=== PATIENT | male | born 1960 | race Caucasian/White ===

== ENCOUNTER → 2020-04-25 | Outpatient (CLI) | payer OTHER ==
[~2020-04-25] MED LIST: ALLOPURINOL 30300 M3 PO; AMBIEN 10 MG TA10 MG PO; BUPROPION XL150 MG PO; DILTIAZEM 24HR300 M1 PO; IBUPROFEN 400400 M1 PO; LEVOTHROID100 MC1 PO; MIRAPEX0.25 MG PO; NAPROSYN250 MG PO; NEURONTIN 300M300 M2 PO; PERCOCET 5-3251 EACH PO; PROZAC40 MG PO; ROBAXIN 750 MG750 M1 PO; VASOTEC20 MG PO; VITAMIN D-32000 UNIT PO; ZOCOR40 MG PO
== END ==
LOC: SJCVC 09:57
PROVIDERS: ATTEND Internal Medicine
DX: Z41.9 Encounter for procedure for purposes other than remedying health state, unspecified (principal); E03.9 Hypothyroidism, unspecified; I12.9 Hypertensive chronic kidney disease with stage 1 through stage 4 chronic kidney disease, or unspecified chronic kidney disease; E11.22 Type 2 diabetes mellitus with diabetic chronic kidney disease; N18.30 Chronic kidney disease, stage 3 unspecified; E78.5 Hyperlipidemia, unspecified; E11.40 Type 2 diabetes mellitus with diabetic neuropathy, unspecified; E66.01 Morbid (severe) obesity due to excess calories; Z82.49 Family history of ischemic heart disease and other diseases of the circulatory system; Z87.891 Personal history of nicotine dependence

== ENCOUNTER → 2020-05-08 | Outpatient (CLI) | payer OTHER | LOC: SJCVCIMAG 07:33 | PROVIDERS: ATTEND Internal Medicine | DX: Z01.810 Encounter for preprocedural cardiovascular examination (principal); E78.00 Pure hypercholesterolemia, unspecified; E11.22 Type 2 diabetes mellitus with diabetic chronic kidney disease; I13.10 Hypertensive heart and chronic kidney disease without heart failure, with stage 1 through stage 4 chronic kidney disease, or unspecified chronic kidney disease; N18.30 Chronic kidney disease, stage 3 unspecified; E66.01 Morbid (severe) obesity due to excess calories; E55.9 Vitamin D deficiency, unspecified; F32.9 Major depressive disorder, single episode, unspecified; Z88.0 Allergy status to penicillin ==

== ENCOUNTER → 2020-05-23 | Outpatient (CLI) | payer OTHER | LOC: SJCVCIMAG 05-16 07:32 | PROVIDERS: ATTEND Internal Medicine | DX: I49.3 Ventricular premature depolarization (principal); I12.9 Hypertensive chronic kidney disease with stage 1 through stage 4 chronic kidney disease, or unspecified chronic kidney disease; N18.9 Chronic kidney disease, unspecified; E78.5 Hyperlipidemia, unspecified; E03.9 Hypothyroidism, unspecified; E66.01 Morbid (severe) obesity due to excess calories; G47.30 Sleep apnea, unspecified; M19.90 Unspecified osteoarthritis, unspecified site; Z79.899 Other long term (current) drug therapy; Z87.891 Personal history of nicotine dependence ==

== ENCOUNTER 2020-07-11 10:52 | Inpatient (IN) | payer OTHER ==
[~2020-07-11] VITALS: Ht 177.8 cm; Wt 224.1 kg
[2020-07-11 10:54] VITALS: BP 137/66
[2020-07-11 11:48] LABS: ABSOLUTE NEUTROPHILS 5.9 thou/uL (1.4-8.2); EOSINOPHILS 3.8 % (0.0-3.0); HEMATOCRIT 45.4 % (42.0-52.0); HEMOGLOBIN 14.3 gm/dL (14.0-18.0); LYMPHOCYTES 8.9 % (24.0-44.0); MCH 29.3 pg (26.0-34.0); MCHC 31.5 g/dL (28.0-37.0); MCV 92.8 fL (80.0-100.0); MONOCYTES 5.9 % (1.0-8.0); PLATELET COUNT 219 thou/uL (150-400); POLYS 80.4 % (36.0-66.0); RBC 4.89 mil/uL (4.50-6.00); RDW 19.5 % (10.5-14.5); WBC 7.3 thou/uL (4.0-11.0)
[2020-07-11 11:57] LABS: ANION GAP 6 mmol/L (7-16); BUN 33 mg/dL (7-18); CALCIUM 8.8 mg/dL (8.5-10.1); CHLORIDE 100 mmol/L (98-107); CO2 30 mmol/L (21-32); CREATININE 2.5 mg/dL (0.7-1.3); GLUCOSE 135 mg/dL (74-106); POTASSIUM 4.5 mmol/L (3.5-5.1); SODIUM 136 mmol/L (136-145)
[2020-07-11 12:07] LABS: ALBUMIN 3.4 g/dL (3.4-5.0); SGOT 21 U/L (15-37); SGPT 28 U/L (30-65); TOTAL BILIRUBIN 0.6 mg/dL (0.2-1.0); TOTAL PROTEIN 8.4 g/dL (6.4-8.2); TROPONIN-I <0.06 ng/mL (<0.06)
[2020-07-11 13:08] LABS: BE(vivo) 0.1 mmol/L (-2 to +3); HCO3 30.2 mmol/L (22.0-26.0); sO2 92.7 % (92.0-98.0)
[2020-07-11 13:09] LABS: PCO2 75.2 mmHg (35.0-45.0); pH 7.221 (7.360-7.450)
[2020-07-11 13:39] VITALS: BP 130/76
[2020-07-11 15:00] VITALS: BP 124/66
--- NOTE | 2020-07-11 18:16 | NUR ---
PT ADMITTED AT 350 AT 1500, PT ALERT AND ORIENTED X4, DENIES CHEST PAIN, NAUSEA AND VOMITTING. 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 PT ON 3L OF OXYGEN, SOB WITH EXERTION. PT STATES WEARS CPAP AT NIGHT. PT WEIGHS 495LB, HOUSE SUP MADE AWARE ABOUT GETTING PT A BARIATRIC BED. PT USES HIS WALKER TO THE BATHRROM. ADMISSION AND ASSESSMENT COMPLTED. LYMPHEDEMA BILATERAL LOWER EXTREMITY, OTHERWISE SKIN INTACT. FALL PRECAUTION IN PLACE
[2020-07-11 19:12] VITALS: BP 135/76
[2020-07-12 04:20] VITALS: BP 118/65
--- NOTE | 2020-07-12 05:51 | NUR ---
PT MAKING PROGRESS TOWARDS GOALS. ABG DONE IN ER NOTED, PT WEIGHT NOTED. PT ON O2 AT 3L PER NC INITIALLY. RT PROVIDED BIPAP AND PT USED THIS FOR MUCH OF THE NIGHT. OFF BIPAP TO USE TOILET. PROVIDED LARGE BSC BUT PT STATED IT WAS TOO SMALL AND NEEDED THE TOILET INSTEAD. NOTED O2 SAT 93-95% WHEN ON BIPAP. SEE CHARTING.
--- NOTE | 2020-07-12 07:11 | EKG ---
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 07/12/20 0710 [id number] Natan Mccord MD, FACC /EPI
[2020-07-12 07:33] VITALS: BP 125/70
[2020-07-12 09:17] LABS: HEMATOCRIT 46.2 % (42.0-52.0); HEMOGLOBIN 14.3 gm/dL (14.0-18.0); MCHC 30.9 g/dL (28.0-37.0); MCV 93.8 fL (80.0-100.0); RBC 4.93 mil/uL (4.50-6.00); RDW 19.5 % (10.5-14.5); WBC 6.7 thou/uL (4.0-11.0)
[2020-07-12 09:27] LABS: CALCIUM 8.7 mg/dL (8.5-10.1); CREATININE 2.1 mg/dL (0.7-1.3); MAGNESIUM 2.6 mg/dL (1.8-2.4); POTASSIUM 5.3 mmol/L (3.5-5.1)
--- NOTE | 2020-07-12 15:01 | NUR ---
INITIAL ASSESSMENT: Received consult. MIGUE reviewed chart and spoke with nursing and attending physician. Pt was admitted from home due to acute hypoxic respiratory failure. Pt was placed in Enhanced Isolation to r/o [facility]. Pt's test was negative. Pt is on 3L of O2 and IV steroids. Pulmonary consulted. MIGUE spoke with pt via phone. Introduced role of SW. Pt is alert/orientated x 4. Pt reports he lives at home with his family. Prior to admission, pt was independent with ADLs. Pt does have walker at home. Pt has a cpap through [facility]. Pt does not have home O2. No hx of HH services or post-acute placement. Pt's PCP is Dr. Urbina. There are 2 steps to enter the home. No steps inside. Discharge home is anticipated over the weekend. SW discussed possible need for home O2. Pt verbalized understanding and is agreeable with using [facility] for home O2. Pt declines need for HH at this time. SW faxed clinical info to [facility] and notified [facility] liaison. Pt will need a rest/exercise oximetry ordered to determine pt's home O2 needs. Results and script will need to be faxed to [facility] when available. Pt will have transportation home. MIGUE is following and available to assist should needs arise. [facility]--
[2020-07-12 15:29] VITALS: BP 137/66
[2020-07-12 16:15] LABS: HCO3 31.6 mmol/L (22.0-26.0); PCO2 73.5 mmHg (35.0-45.0); PO2 61.6 mmHg (80.0-100.0); pH 7.251 (7.360-7.450); sO2 86.8 % (92.0-98.0)
--- NOTE | 2020-07-12 18:33 | NUR ---
PATIENT STATES HE FEELS ASYMPTOMATIC THROUGH OUT THE DAY. IS REALLY ANXIOUS TO DISCHARGE HOME. NEW CONSULT FOR WOUND CARE DOCTOR TO ASSESS LOWER EXTREMITIES. CRITICAL ABG RESULTS CALLED TO DR. HALE. NO NEW ORDERS. GOAL TO TITRATE OFF OXYGEN. PLAN TO DISCHARGE HOME TOMORROW.
[2020-07-12 19:41] VITALS: BP 128/77
[2020-07-13 04:28] VITALS: BP 133/65
[2020-07-13 04:33] LABS: HEMATOCRIT 47.9 % (42.0-52.0); HEMOGLOBIN 14.8 gm/dL (14.0-18.0); MCH 29.2 pg (26.0-34.0); MCHC 30.8 g/dL (28.0-37.0); MCV 94.6 fL (80.0-100.0); RBC 5.06 mil/uL (4.50-6.00); RDW 19.6 % (10.5-14.5); WBC 8.9 thou/uL (4.0-11.0)
[2020-07-13 04:40] LABS: CALCIUM 9.1 mg/dL (8.5-10.1); CREATININE 2.5 mg/dL (0.7-1.3); MAGNESIUM 2.9 mg/dL (1.8-2.4); POTASSIUM 4.8 mmol/L (3.5-5.1)
--- NOTE | 2020-07-13 19:50 | NUR ---
PATIENT HAD REALLY WANTED TO GO HOME TODAY. BUT NEPHROLOGY HAS BEEN CONSULTED AND WILL SEE HIM IN THE AM. HE IS ALERT. AMBULATES TO BATHROOM. SPOKE WITH DAUGHTER WHO STATES THAT LAST TIME HIS CREATININE WAS CHECKED IN [facility] IT WAS 1.2. WILL CONT WITH PLAN OF CARE.
[2020-07-13 20:26] VITALS: BP 121/68
--- NOTE | 2020-07-13 21:12 | NUR ---
PT RESTING IN BED, VERY TALKATIVE AND NOT SOA. O2 PER NC. CPAP AT HS. PT IN BIG BOY BED WITH CHRISTINE MATTRESS. LUNGS WHEEZES AND DIMINISHED, OBESE, BLE EDEMA AND DRY SCALY LEGS. PT AMBULATED WITH WALKER TO . PT DISCUSSED HOW HIS DAUGHTER IS A DR. DOING A ROTATION AT [facility], BUT THAT HER IS JOHNSON AND USELESS. PT PROVIDED SNACK.
--- NOTE | 2020-07-13 23:58 | NUR ---
PTS CPAP MASK FREQUENTLY LEAKING, RESPIRATORY NOTIFIED. TRYING DIFFERENT SIZE CPAP MASK.
[2020-07-14 03:40] VITALS: BP 132/83
--- NOTE | 2020-07-14 03:40 | NUR ---
PT OBSERVED MORE THAN ONCE AND BY MORE THAN ONE NURSE DISCONNECTING HIS FINGER PULSE OX FROM THE MONITOR CORD.
[2020-07-14 04:10] LABS: CALCIUM 8.8 mg/dL (8.5-10.1); CREATININE 2.2 mg/dL (0.7-1.3); MAGNESIUM 2.9 mg/dL (1.8-2.4)
[2020-07-14 04:15] LABS: POTASSIUM 5.1 mmol/L (3.5-5.1)
[2020-07-14 05:04] LABS: HEMATOCRIT 45.2 % (42.0-52.0); HEMOGLOBIN 13.9 gm/dL (14.0-18.0); MCH 28.7 pg (26.0-34.0); MCHC 30.8 g/dL (28.0-37.0); MCV 93.2 fL (80.0-100.0); RBC 4.85 mil/uL (4.50-6.00); RDW 20.2 % (10.5-14.5); WBC 7.5 thou/uL (4.0-11.0)
[2020-07-14 07:07] VITALS: BP 139/81
--- NOTE | 2020-07-14 12:07 | HC ---
[facility] [place] [address] CONSULTATION Name: RAYNE HAYWOOD Room #: 364-P ADM IN M.R.#: [id number] Admission: 07/11/20 Attend Phys: Dave Weiss MD Discharge: Date of : 56 Report #: [id number] THIS REPORT FOR: cc: Sidney Urbina,Leroy Franks MD ~ DATE OF SERVICE: 07/13/2020 WOUND CARE CONSULTATION NOTE LOCATION: [facility]. REASON FOR CONSULTATION: Lymphedema with inflammation of right leg. HISTORY OF PRESENT ILLNESS: The patient is a 59-year-old gentleman with super morbid obesity, alveolar hypoventilation and sleep apnea who was admitted due to shortness of breath. The patient has been scheduled for bariatric surgery. The patient has chronic lymphedema, worse on the right leg than the left. Wound Care is consulted due to appearance of his right leg. PAST MEDICAL HISTORY: Super morbid obesity with alveolar hypoventilation, acute hypoxemic respiratory failure, chronic renal insufficiency, sleep apnea, hypertension, hypercholesterolemia, lower extremity neuropathy, lymphedema. ALLERGIES: No known allergies. MEDICATIONS: Include bupropion, Vasotec, Prozac, Levothroid, Neurontin, Zocor, Mirapex, Robaxin, Percocet, allopurinol, diltiazem, and Ambien. PHYSICAL EXAMINATION: GENERAL: Shows a super morbidly obese gentleman who has no shortness of breath. HEENT: Mucous membranes are moist. NECK: Supple. ABDOMEN: Obese. EXTREMITIES: Examination of the lower extremities shows chronic lymphedema with thickening of the skin and lipedema. Lower right leg anteriorly has chronic discoloration secondary to inflammation with some accumulated crusted drainage. Leg does not appear cellulitic. IMPRESSION: 1. Super morbid obesity with alveolar hypoventilation. 2. Peripheral neuropathy. 3. Chronic lymphedema with inflammation. [facility] [address] [place] [address] CONSULTATION Name: RAYNE HAYWOOD Room #: 364-P [facility] IN M.R.#: [id number] Admission: 07/11/20 Attend Phys: Dave Weiss MD Discharge: Date of : 56 Report #: [id number] PLAN: Ammonium lactate apply to legs. Kerlix and Gerry wrap. On outpatient basis, the patient can be referred to healing at [facility], . <ELECTRONICALLY SIGNED> By: Leroy Ornelas MD 07/14/20 1207 [id number] [id number] Leroy Ornelas MD /nt
[2020-07-14 15:28] VITALS: BP 134/71
--- NOTE | 2020-07-14 18:20 | NUR ---
PATIENT HAS BEEN ABLE TO AMBULATE TO RESTROOM WITH STAND BY ASSIST. CONT 2L NC. DENIES PAIN. NEPRHOLOGY SAW PATIENT TODAY. HE IS ALERT ORIENTED X4. WILL CONT WITH PLAN OF CARE.
[2020-07-14 20:30] VITALS: BP 131/78
--- NOTE | 2020-07-14 23:22 | NUR ---
ASSUMED PT CARE AT 1900. VSS. PT A&0X4. GETS UP WITH THE WLKER TO USE THE BATHROOM. PT ON 4L NC. BUT USES CPAP AT NOC. WHEN RT ATTEMPTED TO PLACE PT ON OWN HOME CPAP. PT WAS NOT SATURATING WELL. SATS WAS READING IN THE 80s. RT PLACED PT ON OUR OWN MINI BIPAP MACHINE BUT THERE WAS A LEAK AND PT STILL WASNT SATURATING WELL. DR HALE NOTIFIED OF PT'S STATUS AT 2314, PT THEN PLACED ON THE HOSPITAL STANDARD BIPAP MACHINE. SETTINGS; 21/10, RATE OF 18 @ 40% PT SATS UP IN HIGH 90s NOW. PT IS STABLE, WILL CONTINUE TO MONITOR PER POC.
[2020-07-15 03:39] LABS: HEMATOCRIT 43.5 % (42.0-52.0); HEMOGLOBIN 13.7 gm/dL (14.0-18.0); MCH 28.9 pg (26.0-34.0); MCHC 31.5 g/dL (28.0-37.0); MCV 91.8 fL (80.0-100.0); RBC 4.74 mil/uL (4.50-6.00); RDW 19.3 % (10.5-14.5); WBC 7.1 thou/uL (4.0-11.0)
[2020-07-15 03:50] LABS: CALCIUM 8.8 mg/dL (8.5-10.1); MAGNESIUM 2.7 mg/dL (1.8-2.4); POTASSIUM 5.4 mmol/L (3.5-5.1)
[2020-07-15 05:25] VITALS: BP 147/72
[2020-07-15] MEDS ORDERED: TORSEMIDE10 MG PO (09:04)
--- NOTE | 2020-07-15 11:32 | NUR ---
DISCHARGE NOTE: SW reviewed chart and spoke with nursing and attending physician. Pt is medically stable for discharge home today. Rest/exercise oximetry completed by RT. Pt does not qualify for home O2. O2 sats remained above 90% on room air and with activity. SW met with pt at bedside to discuss discharge plan. Pt is agreeable with plan. Pt's family will provide transportation home. MIGUE updated [facility] liaison, as pt does not need home O2. No SW needs identified at this time, but is available to assist should needs arise.
[2020-07-15 13:01] VITALS: BP 147/72
--- NOTE | 2020-07-16 09:24 | NUR ---
Note Given: Y Facility List Provided:Y Facility Junior: No facility chosen, pt d/c to home Diane Benton NP discussed BPCI with pt 07/15/2020
== END 2020-07-15 14:10 | disposition home or self-care (01) | DRG 291 ==
LOC: ER 10:52 → 3W 14:00 → EROBS 14:00 → 3W 15:13
PROVIDERS: Emergency Medicine; Internal Medicine Pulmonary Disease; ADMIT Internal Medicine; ATTEND Internal Medicine
PROC: 5A09357 Assistance with Respiratory Ventilation, Less than 24 Consecutive Hours, Continuous Positive Airway Pressure (ICD-10-PCS; principal; 2020-07-11)
PROC: 5A09357 Assistance with Respiratory Ventilation, Less than 24 Consecutive Hours, Continuous Positive Airway Pressure (ICD-10-PCS; 2020-07-12)
PROC: 5A09357 Assistance with Respiratory Ventilation, Less than 24 Consecutive Hours, Continuous Positive Airway Pressure (ICD-10-PCS; 2020-07-13)
PROC: 5A09357 Assistance with Respiratory Ventilation, Less than 24 Consecutive Hours, Continuous Positive Airway Pressure (ICD-10-PCS; 2020-07-14)
PROC: 5A09357 Assistance with Respiratory Ventilation, Less than 24 Consecutive Hours, Continuous Positive Airway Pressure (ICD-10-PCS; 2020-07-15)
DX: I13.0 Hypertensive heart and chronic kidney disease with heart failure and stage 1 through stage 4 chronic kidney disease, or unspecified chronic kidney disease (principal); I50.33 Acute on chronic diastolic (congestive) heart failure; J96.01 Acute respiratory failure with hypoxia; J96.02 Acute respiratory failure with hypercapnia; N17.9 Acute kidney failure, unspecified; E66.2 Morbid (severe) obesity with alveolar hypoventilation; Z68.45 Body mass index [BMI] 70 or greater, adult; N18.9 Chronic kidney disease, unspecified; E78.00 Pure hypercholesterolemia, unspecified; M10.9 Gout, unspecified; F32.9 Major depressive disorder, single episode, unspecified; G62.9 Polyneuropathy, unspecified; E03.9 Hypothyroidism, unspecified; R73.9 Hyperglycemia, unspecified; D72.10 Eosinophilia, unspecified; I87.8 Other specified disorders of veins; Z20.822 Contact with and (suspected) exposure to COVID-19; Z87.891 Personal history of nicotine dependence; Z79.899 Other long term (current) drug therapy; Z99.81 Dependence on supplemental oxygen; Z23 Encounter for immunization
CPT/HCPCS: 10779; 10879

== ENCOUNTER → 2020-07-31 | Outpatient (CLI) | payer OTHER ==
[~2020-07-31] MED LIST changes: +TORSEMIDE10 MG PO
== END ==
LOC: SJCVC 09:48
PROVIDERS: ATTEND Internal Medicine
DX: I12.9 Hypertensive chronic kidney disease with stage 1 through stage 4 chronic kidney disease, or unspecified chronic kidney disease (principal); N18.30 Chronic kidney disease, stage 3 unspecified; E78.5 Hyperlipidemia, unspecified; I10 Essential (primary) hypertension; G60.9 Hereditary and idiopathic neuropathy, unspecified; E66.01 Morbid (severe) obesity due to excess calories; E55.9 Vitamin D deficiency, unspecified; E78.00 Pure hypercholesterolemia, unspecified; Z68.45 Body mass index [BMI] 70 or greater, adult; Z87.891 Personal history of nicotine dependence; Z79.899 Other long term (current) drug therapy; Z88.2 Allergy status to sulfonamides; Z88.1 Allergy status to other antibiotic agents

== ENCOUNTER → 2020-10-02 | Outpatient (CLI) | payer OTHER | LOC: SJCVC 10:09 | PROVIDERS: ATTEND Internal Medicine | DX: I13.0 Hypertensive heart and chronic kidney disease with heart failure and stage 1 through stage 4 chronic kidney disease, or unspecified chronic kidney disease (principal); I50.9 Heart failure, unspecified; N18.9 Chronic kidney disease, unspecified; E78.00 Pure hypercholesterolemia, unspecified; E66.9 Obesity, unspecified; E78.5 Hyperlipidemia, unspecified; Z68.45 Body mass index [BMI] 70 or greater, adult; Z88.2 Allergy status to sulfonamides; Z79.899 Other long term (current) drug therapy; Z87.891 Personal history of nicotine dependence; Z82.49 Family history of ischemic heart disease and other diseases of the circulatory system ==

== ENCOUNTER → 2020-11-21 | Outpatient (CLI) | payer OTHER | LOC: SJCVC 09:03 | PROVIDERS: ATTEND Internal Medicine | DX: E78.00 Pure hypercholesterolemia, unspecified (principal); I12.9 Hypertensive chronic kidney disease with stage 1 through stage 4 chronic kidney disease, or unspecified chronic kidney disease; N18.30 Chronic kidney disease, stage 3 unspecified; E78.5 Hyperlipidemia, unspecified; G60.9 Hereditary and idiopathic neuropathy, unspecified; E66.9 Obesity, unspecified; Z82.49 Family history of ischemic heart disease and other diseases of the circulatory system; Z87.891 Personal history of nicotine dependence; Z88.2 Allergy status to sulfonamides; Z79.899 Other long term (current) drug therapy ==

== ENCOUNTER → 2020-12-19 | Outpatient (CLI) | payer OTHER | LOC: ULTRA 07:24 | PROVIDERS: ATTEND Internal Medicine Nephrology | DX: N28.1 Cyst of kidney, acquired (principal); N28.89 Other specified disorders of kidney and ureter; R16.1 Splenomegaly, not elsewhere classified; N18.32 Chronic kidney disease, stage 3b ==

== ENCOUNTER 2021-04-01 15:36 | Inpatient (IN) | payer OTHER ==
[~2021-04-01] VITALS: Ht 177.8 cm; Wt 207.0 kg
--- NOTE | ~2021-04-01 | EMS ---
[address] [address] EMS Patient Care Report Name: MONY HAYWOOD Room #: 458-P ADM IN M.R.#: [id number] Admission: 04/01/21 Attend Phys: Dave Weiss MD Discharge: Date of : 56 Report #: [id number] THIS REPORT FOR: //name// Report Transmitted: 04/07/2021 15:10 EMS Care Summary [place], [place]/[facility] Incident [id number] @ 04/01/2021 15:00 Incident Location [address] [place] [address] Patient RAYNE HAYWOOD Male, 60 Years 1960 Patient Address [address] [place] [address] Patient History Congestive Heart Failure (CHF),Diabetes,Hypertension (HTN),Morbid Obesity, Patient Allergies No known allergies, Patient Medications Allopurinol, Furosemide, Metformin, Fluoxetine, Gabapentin, Metoprolol, Atorvastatin, Tylenol, Chief Complaint WEAKNESS Disposition Transported No Lights/[place] Dispatch Reason Sick Person Transported To [facility] Narrative ARRIVED TO FIND PT SITTING ON THE GROUND. T15 ON SCENE STATES THEY WERE ORIGINALLY CALLED FOR A LIFT ASSIST, PT FOUND TO BE TOO WEAK TO STAND. PT STATES HE BEGAN TO FEEL WEAK 4 HOURS AGO. PT MOVED TO [facility] WITH [facility], [place] [address] EMS Patient Care Report Name: MONY HAYWOOD Room #: 458-P ADM IN ..#: [id number] Admission: 04/01/21 Attend Phys: Dave Weiss MD Discharge: Date of : 56 Report #: [id number] SECURED WITH STRAPS X2, LOADED WITHOUT INCIDENT. ALS ASSESSMENT VITALS OBTAINED. ENROUTE PT CONDITION UNCHANGED. ARRIVED. PT TAKEN INSIDE ON COT TO ER. PT MOVED TO BED RAILS RAISED X2. REPORT GIVEN TO NURSE, PT CARE TRANSFERRED. Initial Vitals @PTAP: 115,R: 24,BP: 118/76,Pain: 0/10,GCS: 15,Glucose: 126,SpO2: 88,Revised Trauma: 12, @15:30P: 110,R: 24,Pain: 0/10,GCS: 15,SpO2: 95, Assessments @15:10MENTAL:Place Oriented,Event Oriented,Time Oriented,Person Oriented,SKIN:HEENT:Head/Face: No Abnormalities,Eyes: No Abnormalities,Neck/Airway: No Abnormalities,LUNG SOUNDS:General: No Abnormalities,Left Upper: No Abnormalities,Right Upper: No Abnormalities,Left Lower: No Abnormalities,Right Lower: No Abnormalities,ABDOMEN:General: No Abnormalities,Left Upper: No Abnormalities,Right Upper: No Abnormalities,Left Lower: No Abnormalities,Right Lower: No Abnormalities,PELVIS//GI:No Abnormalities,EXTREMITIES:Right Leg: Edema,Left Leg: Abnormal Sensation,Left Leg: Edema,Right Leg: Abnormal Sensation,Left Arm: No Abnormalities,Right Arm: No Abnormalities,PULSE:Radial: 2+ Normal,NEURO:No Abnormalities, Impression Generalized Weakness Procedures @PTAOxygen FlowRate: 4 Device: Nasal Cannula (NC) Response: ImprovedSucceeded @15:10 ALS Assessment Response: UnchangedSucceeded Timeline BACKING IN MACHINE TENDER,Oxygen FlowRate: 4 Device: Nasal Cannula (NC) Response: ImprovedSucceeded, BACKING IN MACHINE TENDER,BP: 118/76 M,PULSE: 115,RR: 24 R,SPO2: 88 Ox,ETCO2: ,B,PAIN: 0,GCS: 15, 14:43,Call Received 14:43,Dispatch Notified 15:00,Dispatched 15:00,En Route 15:09,On Scene 15:10,At Patient 15:10,ALS Assessment,Response: UnchangedSucceeded, 15:23,Depart Scene 15:30,BP: / M,PULSE: 110,RR: 24 R,SPO2: 95 Ox,ETCO2: ,BG: ,PAIN: 0,GCS: 15, [facility] [address] [place] [address] EMS Patient Care Report Name: MONY HAYWOOD Room #: 458-P ADM IN M.R.#: [id number] Admission: 04/01/21 Attend Phys: Dave Weiss MD Discharge: Date of : 56 Report #: [id number] 15:31,At Destination 15:46,Call Closed Disclaimer v1.1 Copyright 2020 [employer] This EMS Care Summary contains data elements from the applicable legal record (which may be displayed differently). It is designed to provide pertinent information for the following purposes: continuity of care, clinical quality, and state data reporting. The complete legal record is available to ED staff and administrators of the receiving hospital in [facility]'s Patient Tracker. All data is provided "as is."
[2021-04-01 15:37] VITALS: BP 84/39
[2021-04-01 15:59] LABS: ABSOLUTE NEUTROPHILS 16.3 thou/uL (1.4-8.2); BASOPHILS 0.5 % (0.0-2.0); EOSINOPHILS 0.4 % (0.0-3.0); HEMATOCRIT 46.3 % (42.0-52.0); HEMOGLOBIN 14.5 gm/dL (14.0-18.0); LYMPHOCYTES 1.4 % (24.0-44.0); MCH 29.9 pg (26.0-34.0); MCHC 31.2 g/dL (28.0-37.0); MCV 95.8 fL (80.0-100.0); MONOCYTES 3.8 % (1.0-8.0); PLATELET COUNT 205 thou/uL (150-400); POLYS 93.9 % (36.0-66.0); RBC 4.83 mil/uL (4.50-6.00); RDW 18.8 % (10.5-14.5); WBC 17.4 thou/uL (4.0-11.0)
[2021-04-01 16:11] LABS: CREATININE 3.3 mg/dL (0.7-1.3); POTASSIUM 5.7 mmol/L (3.5-5.1)
[2021-04-01 16:13] LABS: APTT 30.5 Seconds (24.5-32.8); INR 1.16; PROTIME 12.6 Seconds (10.5-12.1)
[2021-04-01 16:22] LABS: ALBUMIN 3.6 g/dL (3.4-5.0); TOTAL BILIRUBIN 0.6 mg/dL (0.2-1.0); TOTAL PROTEIN 8.3 g/dL (6.4-8.2)
[2021-04-01 16:27] LABS: URINE BILIRUBIN NEGATIVE (Negative); URINE BLOOD 1+ (Negative); URINE CLARITY CLOUDY; URINE COLOR YELLOW; URINE GLUCOSE-RANDOM* NEGATIVE (Negative); URINE KETONES NEGATIVE (Negative); URINE NITRITE-REFLEX NEGATIVE (Negative); URINE PROTEIN (DIPSTICK) 2+ (Negative); URINE SPECIFIC GRAVITY 1.015 (1.005-1.035); URINE UROBILINOGEN 0.2 E.U./dl (0.2-1.0)
[2021-04-01 16:28] LABS: URINE LEUKOCYTES-REFLEX 2+ (Negative)
[2021-04-01 16:37] LABS: BACTERIA-REFLEX 1-9 Few /HPF (None Seen); CASTS None Seen /LPF (None Seen); CRYSTALS None Seen /LPF (None Seen); SQUAMOUS 0-3 Few /LPF (0-3); URINE RBC 1-2 Rare /HPF (NONE SEEN)
[2021-04-01 16:39] LABS: BE(vivo) -6.7 mmol/L (-2 to +3); HCO3 18.9 mmol/L (22.0-26.0); PCO2 38.3 mmHg (35.0-45.0); PO2 68.1 mmHg (80.0-100.0); pH 7.312 (7.360-7.450); sO2 92.2 % (92.0-98.0)
--- NOTE | 2021-04-01 16:46 | NUR ---
UPDATED PT SON AT THIS TIME, OK PER PT
--- NOTE | 2021-04-01 17:46 | NUR ---
VAT CONSULTED FOR CVAD. DISCUSSED BENEFITS AND RISK WITH PT, VERBALIZED UNDERSTANDING. RIJ WAS WIDELY PATENT WITH USG. 6FT TL POWER JACC 25CM INSERTED X1 STICK TO 7CM EXTERNAL. PT TOLERATED WELL. STAT CXR ORDERED.
--- NOTE | 2021-04-01 18:15 | NUR ---
CXR CONFIRMED RIJ PLACEMENT, CENTRAL LINE RELEASED FOR IMMEDIATE USE PER PROTOCOL.
[2021-04-01 18:22] VITALS: BP 119/58
[2021-04-01 18:42] VITALS: BP 112/55
[2021-04-01 18:45] VITALS: BP 107/52
--- NOTE | 2021-04-01 19:06 | NUR ---
PT RECEIVED FROM ED AT 1840. GCS 15. VANCOMYCIN, NS AT 126, AND LEVO TITRATED FROM 6 TO 5 MCG/MIN. VITALS SIGNS OBTAINED AND WITHIN NORMAL LIMITS. TEMP 100. PT EDUCATED ON VISITORS. REPORT GIVEN TO NIGHT RN.
[2021-04-01 19:36] LABS: CALCIUM 8.4 mg/dL (8.5-10.1); CREATININE 3.2 mg/dL (0.7-1.3); POTASSIUM 5.6 mmol/L (3.5-5.1)
[2021-04-01 19:44] LABS: ABSOLUTE NEUTROPHILS 18.2 thou/uL (1.4-8.2); BASOPHILS 0.4 % (0.0-2.0); EOSINOPHILS 0.2 % (0.0-3.0); HEMOGLOBIN 13.5 gm/dL (14.0-18.0); MCH 29.9 pg (26.0-34.0); MCHC 31.5 g/dL (28.0-37.0); MCV 94.9 fL (80.0-100.0); MONOCYTES 3.8 % (1.0-8.0); PLATELET COUNT 197 thou/uL (150-400); POLYS 93.6 % (36.0-66.0); RBC 4.53 mil/uL (4.50-6.00); RDW 19.1 % (10.5-14.5); WBC 19.4 thou/uL (4.0-11.0)
[2021-04-01 19:47] LABS: APTT 31.3 Seconds (24.5-32.8)
[2021-04-01 20:12] LABS: ANISOCYTOSIS 1+
[2021-04-01 20:21] LABS: ANISOCYTOSIS 2+
--- NOTE | 2021-04-01 22:27 | NUR ---
ASSUMED CARE OF PT AT 1900. PT ALERT AND ORIENTED X4. LEVOPHED GTT TITRATED PER ORDER. THIS RN SPOKE TO HIS SON ZAKIA, DAUGHTER HERMES, AND HARRIS PER PT REQUEST. MEDICATION LIST WAS OBTAINED VIA PHONE BY SPEAKING WITH . WILL CONTINUE TO MONITOR.
[2021-04-01] MEDS ORDERED: TYLENOL325 M1 PO (22:53)
[2021-04-01] MEDS ORDERED: PROZAC20 M1 PO (22:55)
[2021-04-01] MEDS ORDERED: ALLOPURINOL 10100 M3 PO (22:56)
[2021-04-01] MEDS ORDERED: METFORMIN HCL500 M3 PO (22:57)
[2021-04-01] MEDS ORDERED: MIRAPEX1.5 MG PO (22:59)
[2021-04-01] MEDS ORDERED: LIPITOR 20 MG T20 M1 PO (23:01)
[2021-04-01] MEDS ORDERED: TORSEMIDE20 MG PO (23:05)
[2021-04-01] MEDS ORDERED: FUROSEMIDE 40 M40 MG PO (23:05)
[2021-04-01] MEDS ORDERED: NEURONTIN300 MG PO (23:06)
[2021-04-01] MEDS ORDERED: CARTIA XT300 M1 PO (23:07)
[2021-04-01] MEDS ORDERED: TOPROL XL25 MG PO (23:09)
[2021-04-02] VITALS (29 sets, daily range): BP systolic 84–131; BP diastolic 48–100
[2021-04-02 05:53] LABS: ABSOLUTE NEUTROPHILS 12.9 thou/uL (1.4-8.2); BASOPHILS 0.5 % (0.0-2.0); EOSINOPHILS 0.1 % (0.0-3.0); HEMATOCRIT 42.5 % (42.0-52.0); HEMOGLOBIN 13.5 gm/dL (14.0-18.0); LYMPHOCYTES 3.2 % (24.0-44.0); MCH 30.3 pg (26.0-34.0); MCHC 31.7 g/dL (28.0-37.0); MCV 95.7 fL (80.0-100.0); MONOCYTES 4.6 % (1.0-8.0); PLATELET COUNT 181 thou/uL (150-400); POLYS 91.6 % (36.0-66.0); RBC 4.44 mil/uL (4.50-6.00); WBC 14.1 thou/uL (4.0-11.0)
--- NOTE | 2021-04-02 07:10 | EKG ---
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 : 1960 Requested By: Milo Riggins Order Number: [id number] MD: Natan Mccord Measurements Intervals [place] Rate: 102 P: 80 TX: 160 QRS: 53 QRSD: 86 T: 84 QT: 306 QTc: 399 Interpretive Statements Sinus tachycardia Low voltage, precordial leads Baseline wander in lead(s) V1,V2,V4 Compared to ECG 07/11/2020 11:29:02 Sinus rhythm no longer present Electronically Signed On 04-02-2021 7:10:17 LANGUAGE TUTOR by Natan Mccord [email or web address] <ELECTRONICALLY SIGNED> By: Natan Mccord MD, [facility] 04/02/21 0710 [id number] Natan Mccord MD, FAC /EPI
[2021-04-02 07:23] LABS: CALCIUM 8.7 mg/dL (8.5-10.1); CREATININE 2.8 mg/dL (0.7-1.3); POTASSIUM 4.9 mmol/L (3.5-5.1)
--- NOTE | 2021-04-02 16:27 | NUR ---
PT ADMITTED RELATED TO SEPTIC SHOCK. CM REVIEWED CHART AND SPOKE WITH CARE TEAM. CM MET WITH PT AT BEDSIDE THIS DAY. PT APPEARED TO BE A&O X4. CM ROLE INTRODUCED. PT INDICATED HE LIVES IN A HOUSE WITH HIS SPOUSE WITH 2 STEPS TO ENTER THROUGH GARAGE AND ALL NEEDS ON ONE LEVEL ONCE INSIDE. PT INDICATED HE HAS A GB ON ENTRY DOOR. PT HAS A FWW AND A 4WW FOUR HOME USE WELL A CPAP THROUGH [facility]. PT WAS HERE IN JULY AND DIDN'T QUALIFY FOR HOME O2 UPON DC THEN. PT INDICATED HE WRAPS HIS OWN LEGS WITH RAMU BANDAGES. PT INDICATED HE WOULD BE RECEPTIVE TO HH IF NEEDED UPON DC AND THAT HE WOULD PREFER NOT TO GO FOR SHORT TERM POST ACUTE CARE STAY. IT WAS INDICATED THAT PT MAY BE ABLE TO TRANSFER OUT OF ICU THIS DAY. CM FOLLOWING REGARDING DC PLANNING.
[2021-04-02 19:44] LABS: CALCIUM 8.6 mg/dL (8.5-10.1); CREATININE 2.5 mg/dL (0.7-1.3); POTASSIUM 4.7 mmol/L (3.5-5.1)
[2021-04-03 01:27] VITALS: BP 135/69
[2021-04-03 04:47] VITALS: BP 137/68
[2021-04-03 06:04] LABS: ABSOLUTE NEUTROPHILS 6.6 thou/uL (1.4-8.2); BASOPHILS 0.7 % (0.0-2.0); EOSINOPHILS 2.9 % (0.0-3.0); HEMATOCRIT 42.8 % (42.0-52.0); HEMOGLOBIN 13.8 gm/dL (14.0-18.0); LYMPHOCYTES 8.9 % (24.0-44.0); MCH 30.6 pg (26.0-34.0); MCHC 32.2 g/dL (28.0-37.0); MONOCYTES 6.8 % (1.0-8.0); PLATELET COUNT 158 thou/uL (150-400); POLYS 80.7 % (36.0-66.0); RDW 19.2 % (10.5-14.5); WBC 8.2 thou/uL (4.0-11.0)
[2021-04-03 06:14] LABS: ALBUMIN 2.9 g/dL (3.4-5.0); CREATININE 2.2 mg/dL (0.7-1.3); PHOSPHORUS 3.9 mg/dL (2.5-4.9)
[2021-04-03 06:42] LABS: POTASSIUM 5.2 mmol/L (3.5-5.1)
--- NOTE | 2021-04-03 07:29 | NUR ---
ASSUMED CARE OF PT AT 1900. PT ASSESSED TO BE AOX4 60M PRESENTING WITH SEPSIS AND LEG WOUNDS. THROUGHOUT THE NIGHT PT RESTED QUIETLY IN ROOM WITH FEW COMPLAINTS, VSS. FOUND THAT CATHETER HAD BEEN YANKED ON THE AM OF THE DUE TO NO SECUREMENT DEVICE AND HAD NOT BEEN CHECKED SINCE THEN. CLEANED DRIED BLOOD AND SECURED TO LEG WITH DEVICE TO AVOID FURTHER TRAUMA. PAIN CONTROLLED WITH ORAL PAIN MEDS. COMMODE SET UP IN ROOM FOR BOWEL MOVEMENT, PT NOT OOB TONIGHT. DRESSED R LEG WOUNDS DESPITE LACK OF ORDER TO RELIEVE FRICTION PAIN. WORKED WITH PAVING FOREMAN TO GET MORE PAIN CONTROL AND LYMPHEDEMA WRAPS FOR AM. SON TO BRING IN CPAP TOMORROW. TALBERT SHOWS HEMATURIA DUE TO TRAUMA, LIGHT HENDRICKSON WITH SOME CLOTS. WILL CONT TO MONITOR.
[2021-04-03 08:30] VITALS: BP 136/76
[2021-04-03 11:50] VITALS: BP 166/60
--- NOTE | 2021-04-03 13:36 | NUR ---
PT PAIN NOT WELL CONTROLLED. PT AFEBRILE, POLYUREA, NO BM, GOOD APPETITE. BILATERAL LOWER LEGS WRAPPED FOR LYMPHADEMA, MISC. SCATTERED WOUNDS WERE DRESSED BY PREVIOUS SHIFT. SCROTAL EDEMA, AND DRIED/OOZING BLOOD FROM PENIS. RIGHT IJ IN PLACE AND FUNCTIONING WELL. PT HAS BEEN THOUROUGHLY UPDATED AND EDUCATED ON PT CONDITION AND POC. PT SLOWLY PROGRESSING TOWARDS POC.
[2021-04-03 16:30] VITALS: BP 147/76
[2021-04-03 18:46] LABS: CALCIUM 8.8 mg/dL (8.5-10.1); CREATININE 2.1 mg/dL (0.7-1.3); POTASSIUM 5.5 mmol/L (3.5-5.1)
[2021-04-03 19:34] VITALS: BP 153/77
[2021-04-04 04:37] VITALS: BP 124/70
[2021-04-04 07:00] VITALS: BP 153/88
--- NOTE | 2021-04-04 07:19 | NUR ---
ASSUMED CARE OF PT AT 1900. PT ASSESSED TO BE AOX4 60M PRESENTING FOR SEPSIS AND BLLE WOUNDS. PT RESTED THROUGHOUT MOST OF THE NIGHT WITH NO COMPLAINTS, VSS. R ARM IV WENT BAD, TALBERT STILL DRAINING HENDRICKSON COLORED URINE WITH SOME CLOTS DUE TO PENILE TRAUMA, SECURED TO LEG. STAND PIVOTS TO COMMODE, PAIN TREATED WITH ORAL PAIN MEDS.
[2021-04-04 10:09] LABS: CREATININE 1.9 mg/dL (0.7-1.3); PHOSPHORUS 3.7 mg/dL (2.6-4.7); POTASSIUM 5.7 mmol/L (3.5-5.1)
--- NOTE | 2021-04-04 16:02 | NUR ---
PT ALERT AND ORIENTED TIMES FOUR. VSS, IVF INFUSING PER ORDER. TALBERT TO DD. PT C/O PAIN PRN PAIN MEDICATIONS CONTROLLING PAIN WELL. PT TOLERATES MEDS AND MEALS. WILL COMTINUE TO MONITOR.
[2021-04-04 20:19] VITALS: BP 157/82
[2021-04-05 00:34] VITALS: BP 132/64
[2021-04-05 04:10] VITALS: BP 136/68
--- NOTE | 2021-04-05 04:57 | NUR ---
Pt. rested quietly at short intervals during the night when checked on during frequent rounds. He was assisted up to the bedside comode with max assist of two and his walker. He c/o pain to his lower legs and pain meds given (see emar) with some relief noted. Bed alarm is on.
[2021-04-05 06:34] LABS: ALBUMIN 2.8 g/dL (3.4-5.0); CREATININE 1.6 mg/dL (0.7-1.3); PHOSPHORUS 3.6 mg/dL (2.6-4.7); POTASSIUM 5.6 mmol/L (3.5-5.1)
[2021-04-05 08:09] VITALS: BP 148/79
--- NOTE | 2021-04-05 11:39 | HC ---
[facility] [place] [address] CONSULTATION Name: MONY HAYWOOD Room #: 458-P ADM IN M.R.#: [id number] Admission: 04/01/21 Attend Phys: Dave Weiss MD Discharge: Date of : 56 Report #: [id number] THIS REPORT FOR: cc: Sidney Urbina Steven F. DO Geha, Daniel J. MD ~ DATE OF SERVICE: 04/01/2021 INFECTIOUS DISEASE CONSULTATION REASON FOR CONSULTATION: I was asked to evaluate concerning septic shock. HISTORY OF PRESENT ILLNESS: The patient is a 60-year-old morbidly obese gentleman with underlying history of obstructive sleep apnea, hypertension and gout. Over the last several weeks, he stated he has not felt well. He does have chronic pain, especially in his back and he has just had overall lethargy and malaise. He has had increased swelling in his lower extremities, right greater than left. He has had some urinary discomfort and hesitancy. Denies any definite flank pain. No cough or sputum production. Patient felt reasonably well when he got up today. Did most of his house chores and laid down to sleep when he developed onset of rigors. He got out of bed and legs gave out in the bathroom. He did fall and was brought in by EMS. He lives with his . On presentation, he was hypoxic on room air and placed on 4 liters of oxygen per nasal cannula. He has had no nausea or vomiting. He has had loose stools over the last week. He does report some increased pain in his right lower leg. He has had no travel. He is disabled. He denies any headache. Did not lose consciousness. PAST MEDICAL HISTORY: Obstructive sleep apnea, hypertension, hyperlipidemia, bilateral lower extremity peripheral neuropathy, venous stasis disease of the lower extremities, gout, depression. ALLERGIES: None known. MEDICATIONS: As noted on his MAR, which were reviewed. FAMILY HISTORY: No report of tuberculosis. SOCIAL HISTORY: He is a past smoker, does use alcohol. No recreational drugs or HIV risk. REVIEW OF SYSTEMS: A 14-point review of system was negative other than what has been described above. PHYSICAL EXAMINATION: VITAL SIGNS: Maximum temperature was 38.1 degrees, blood pressure was down into the 70s systolic. Now, he is on vasopressors. Now afebrile, hemodynamically [facility] [address] [place] [address] CONSULTATION Name: MONY HAYWOOD Room #: 458-P [facility] IN M.R.#: [id number] Admission: 04/01/21 Attend Phys: Dave Weiss MD Discharge: Date of : 56 Report #: [id number] stable. GENERAL: Alert and cooperative. He was on CPAP mask with evidence of cellulitis involving the right lower extremity with lymphangitis up his medial thigh. Lower leg was tender to palpation. He had decreased sensation to fine touch in both lower extremities below the ankle. No palpable adenopathy. HEENT: Eyes without scleral icterus. Mouth without mucositis. NECK: Supple. LUNGS: Decreased breath sounds bilaterally. HEART: Regular, without murmur, gallop or rub. ABDOMEN: Obese with a large abdominal pannus. Firm without mass or hepatosplenomegaly. No guarding or rebound. External genitalia without mass or lesion. He has an indwelling Justice catheter. RECTAL: Not performed. NEUROLOGIC: Cranial nerves intact. Strength in his upper and lower extremities was symmetric and within normal limits. BACK: Nontender with no CVA tenderness. LABORATORY DATA: Reviewed. MICROBIOLOGY: Reviewed. IMAGING: Chest x-ray reviewed. IMPRESSION: A 60-year-old with septic shock, leukocytosis, acute kidney injury. FINDINGS: 1. Include bibasilar infiltrates, hematuria and bacteriuria, right lower extremity venous stasis disease with cellulitis and lymphangitis. I am suspecting a lymphangitis of the right lower extremity as the initial cause of his septic shock. 2. Morbid obesity. 3. Obstructive sleep apnea, depression, gout. RECOMMENDATION: We will continue broad antibiotic coverage, pending culture results. Serial laboratory studies. Wean vasopressors as appropriate. Adjust antibiotics for his renal failure. Image abdomen to assess kidneys and ureter. <ELECTRONICALLY SIGNED> By: Blaise Amaya MD 04/05/21 1139 [id number] Blaise Amaya MD /nt
[2021-04-05 12:08] VITALS: BP 147/86
[2021-04-05 17:00] VITALS: BP 120/60
[2021-04-05 22:25] VITALS: BP 144/71
[2021-04-06 08:30] VITALS: BP 147/93
[2021-04-06 08:43] LABS: ALBUMIN 2.8 g/dL (3.4-5.0); CALCIUM 9.5 mg/dL (8.5-10.1); CREATININE 1.6 mg/dL (0.7-1.3); PHOSPHORUS 2.9 mg/dL (2.6-4.7); POTASSIUM 5.2 mmol/L (3.5-5.1)
[2021-04-06 13:51] VITALS: BP 139/83
[2021-04-06 20:00] VITALS: BP 152/89
[2021-04-06 23:50] VITALS: BP 140/82
--- NOTE | 2021-04-07 02:59 | NUR ---
PATIENT IS A/0X4. HE IS UP TO THE [facility] WITH ASSIST X 2. PATIENT NO LONGER HAS TALBERT CATHETER AND HIS SCROTUM IS ENLARGED. PATIENT USES URINAL WITH ASSIST AND / OR A BUCKET IS HELD IN FRONT OF HIM WHEN ON BSC D/T HE CANNOT FIT HIS SCROTUM IN THE BSC D/T ENLARGEMENT AND IT PUSHES THE PATIENT FORWARD. PATIENT HAS CENTRAL TRIPLE LINE AT RIGHT SUBCLAVIAN AREA. TRAMADOL 50MG GIVEN FOR BILATERAL LEG PAIN AT 2136. PATIENT HAD MODERATE BM. PATIENT IN SINUS RHYTHM AT THIS TIME. PATIENT HAS LEFT LYMPHEDEMA AND BILATERAL LEGS DISCOLORED BUT WITH 2+ PULSES AND 2+EDEMA IN BILATERAL LE'S. BED IN LOW POSITION AND BED ALARM IS ON.
[2021-04-07 04:53] VITALS: BP 145/86
[2021-04-07 06:02] LABS: ALBUMIN 2.9 g/dL (3.4-5.0); CALCIUM 9.4 mg/dL (8.5-10.1); CREATININE 1.8 mg/dL (0.7-1.3); PHOSPHORUS 3.6 mg/dL (2.5-4.9); POTASSIUM 4.5 mmol/L (3.5-5.1)
[2021-04-07 07:45] VITALS: BP 139/83
[2021-04-07 11:50] VITALS: BP 135/70
[2021-04-07 14:48] VITALS: BP 135/70
[2021-04-07 15:50] VITALS: BP 139/72
[2021-04-07] MEDS ORDERED: NEURONTIN 300M300 M2 PO (16:08)
[2021-04-07] MEDS ORDERED: CIPRO500 M1 PO (16:09)
--- NOTE | 2021-04-07 16:09 | NUR ---
CARE TEAM INDICATED THAT PT IS MEDICALLY STABLE TO DC HOME THIS DAY. SHORT TERM POST ACUTE CARE STAY HAD BEEN BROACHED WIHT PT BUT HE IS INDICATING THAT HE NEEDS TO RETURN HOME TO HIS SPOUSE WHO HAS MIGRINE HEADACHES THAT PRESENT IN DEMENTIA LIKE BOUTS. PT HAS HOME CPAP THROUGH [facility] AND WALKERS TO ASSIST WITH AMBULATION. PT HAS A LIFT CHAIR BUT INDICATED THAT IT ISN'T FOR HIS WEIGHT. CM INDICATED THAT CM CAN'T GET HIM A LIFT CHAIR FOR HOME USE UPON DC THIS DAY THAT ONLY THE LIFT DEVICE NOT THE CHAIR WOULD POTENTIALLY BE COVERED BY INSURANCE. PT WAS AWARE OF THIS. CM PROVIED PT WITH INFO ON WHERE HE MAY INQUIRE ABOUT LIFT CHAIRS UPON DC. PT DIDN'T QUALIFY FOR HOME USE THIS DAY SATS WERE AT 94 WITH ACTIVITY AT BED LEVEL WHICH IS WHAT PT DOES AT HOME. CM REQUESTED AND RECEIVED PERMISSION TO [facility] THIS DAY BETWEEN [phone]. THE [facility] CAN ACCEPT PT FOR PT, OT, NURSING, AND LYMPHEDEMA WITH SOC WEDNESDAY. PT IS AWARE AND AGREEABLE WITH THE ABOVE AND NOTIFIED HIS AND SON. CM FAXED ORDERES TO [employer]. NO OTHER CM INTERVENTION INDICATED. CASE CLOSED.
--- NOTE | 2021-04-07 19:14 | NUR ---
Patient did well throughout my shift. No concerns at this time, patient tolerated wound care and working with PT
== END 2021-04-07 18:00 | disposition home health service (06) | DRG 871 ==
LOC: ER 15:36 → ICU 17:00 → 4W 17:00 → EROBS 17:00 → ICU 18:41 → 4W 04-02 18:30
PROVIDERS: Emergency Medicine; Internal Medicine Nephrology; ADMIT Internal Medicine; ATTEND Internal Medicine
DX: A41.9 Sepsis, unspecified organism (principal); J96.01 Acute respiratory failure with hypoxia; R65.21 Severe sepsis with septic shock; N17.0 Acute kidney failure with tubular necrosis; E43 Unspecified severe protein-calorie malnutrition; J18.9 Pneumonia, unspecified organism; L03.115 Cellulitis of right lower limb; N39.0 Urinary tract infection, site not specified; Z68.44 Body mass index [BMI] 60.0-69.9, adult; I12.9 Hypertensive chronic kidney disease with stage 1 through stage 4 chronic kidney disease, or unspecified chronic kidney disease; N18.32 Chronic kidney disease, stage 3b; F32.A Depression, unspecified; M10.9 Gout, unspecified; G62.9 Polyneuropathy, unspecified; I89.0 Lymphedema, not elsewhere classified; E03.9 Hypothyroidism, unspecified; E66.01 Morbid (severe) obesity due to excess calories; E78.00 Pure hypercholesterolemia, unspecified; R53.81 Other malaise; E78.5 Hyperlipidemia, unspecified; B96.89 Other specified bacterial agents as the cause of diseases classified elsewhere; R91.8 Other nonspecific abnormal finding of lung field; I87.8 Other specified disorders of veins; R31.9 Hematuria, unspecified; G47.33 Obstructive sleep apnea (adult) (pediatric); Z20.822 Contact with and (suspected) exposure to COVID-19; Z99.81 Dependence on supplemental oxygen; Z79.899 Other long term (current) drug therapy; Z87.891 Personal history of nicotine dependence
CPT/HCPCS: 10045; 10078

== ENCOUNTER → 2021-06-18 | Outpatient (CLI) | payer OTHER ==
[~2021-06-18] MED LIST changes: +ALLOPURINOL 10100 M3 PO; +CARTIA XT300 M1 PO; +CIPRO500 M1 PO; +FUROSEMIDE 40 M40 MG PO; +LIPITOR 20 MG T20 M1 PO; +METFORMIN HCL500 M3 PO; +MIRAPEX1.5 MG PO; +NEURONTIN300 MG PO; +PROZAC20 M1 PO; +TOPROL XL25 MG PO; +TORSEMIDE20 MG PO; +TYLENOL325 M1 PO
== END ==
LOC: SJCVC 09:01
PROVIDERS: ATTEND Internal Medicine
DX: Z01.810 Encounter for preprocedural cardiovascular examination (principal); I12.9 Hypertensive chronic kidney disease with stage 1 through stage 4 chronic kidney disease, or unspecified chronic kidney disease; N18.30 Chronic kidney disease, stage 3 unspecified; E78.5 Hyperlipidemia, unspecified; F17.210 Nicotine dependence, cigarettes, uncomplicated; Z82.49 Family history of ischemic heart disease and other diseases of the circulatory system; Z88.1 Allergy status to other antibiotic agents; Z79.84 Long term (current) use of oral hypoglycemic drugs; Z79.899 Other long term (current) drug therapy